=== PATIENT | male | born 1965 | race Caucasian/White ===

== ENCOUNTER 2023-09-19 06:01 | Emergency (ER) | payer BC ==
[~2023-09-19] VITALS: Ht 182.9 cm; Wt 86.2 kg
[2023-09-19] MEDS ORDERED: AZIT250T PO (07:43)
[2023-09-19] MEDS ORDERED: dexAMETHasone 1 MG TABLET PO ONE (08:00)
[2023-09-19] MEDS ORDERED: dexAMETHasone 4 MG TABLET ONE (08:05)
[2023-09-19] MEDS ORDERED: dexAMETHasone 1 MG TABLET ONE (08:05)
[2023-09-19 08:15] VITALS: BP 128/81; TEMP 98.5; O2SAT 96
== END 2023-09-19 08:16 | disposition home or self-care (01) ==
LOC: ER 06:07
DX: K12.2 Cellulitis and abscess of mouth (principal); J06.9 Acute upper respiratory infection, unspecified; I10 Essential (primary) hypertension; E11.9 Type 2 diabetes mellitus without complications; Z60.2 Problems related to living alone
CPT/HCPCS: 99283; 71045; J8540 ×2